=== PATIENT | male | born 1950 | race Caucasian/White ===

== ENCOUNTER → 2019-12-27 14:23 | Outpatient (BNVA) | payer MEDICARE, OTHER, SELFPAY | PROVIDERS: Family Provider Family Medicine; PCP Family Medicine; Referring Provider Nurse Practitioner Family; Visit Provider Internal Medicine Cardiovascular Disease | DX: I49.3 Ventricular premature depolarization (principal); R00.2 Palpitations | CPT/HCPCS: 80048; 83735; 84443 ==

== ENCOUNTER 2020-01-12 15:18 | Outpatient (CLI) | payer MEDICARE, OTHER, SELFPAY ==
--- NOTE | 2020-01-12 15:45 | USCV_ITS ---
Hair Osman Age: 69 Gender: M : 1950 Exam Date: 01/12/2020 15:45 Ordering Phys: Cely Vela MD ([email or web address]) Technologist: Madeleine Macario Exam Location: [facility] [place] Indication: PVCS BP: 173 / 86 HR: 67 Rhythm: PVCs Technical Quality: Good MEASUREMENTS (Male / Female) Normal Values 2D ECHO LV Diastolic Diameter PLAX 5.3 cm 4.2 - 5.9 / 3.9 - 5.3 cm LV Systolic Diameter PLAX 3.6 cm LV Chamber Size 5.1 cm IVS Diastolic Thickness 1.1 cm 0.6 - 1.0 / 0.6 - 0.9 cm IVS Systolic Thickness 1.8 cm LVPW Diastolic Thickness 1.0 cm 0.6 - 1.0 / 0.6 - 0.9 cm LVPW Systolic Thickness 1.3 cm RV Chamber Size 4.0 cm LVOT Diameter 2.0 cm LV Ejection Fraction 2D Teich 59.7 % LV Ejection Fraction MOD 2C 51.5 % LV Ejection Fraction 2C AL 54.4 % LA Diameter 3.9 cm LA Width 2.3 cm LA Height 5.1 cm RA Width 4.1 cm RA Height 4.7 cm Aorta at Sinotubular Diameter 3.2 cm M-MODE LV Diastolic Diameter MM 6.3 cm 4.2 - 5.9 / 3.9 - 5.3 cm LV Systolic Diameter MM 3.6 cm LV Ejection Fraction MM Teich 72.6 % IVS Diastolic Thickness MM 0.8 cm 0.6 - 1.0 / 0.6 - 0.9 cm IVS Systolic Thickness MM 1.7 cm LVPW Diastolic Thickness MM 1.3 cm 0.6 - 1.0 / 0.6 - 0.9 cm LVPW Systolic Thickness MM 1.6 cm RV Diastolic Diameter MM 2.4 cm Aortic Annulus Diameter 3.4 cm LA Ao Ratio MM 1.2 MV E Point Septal Separation 0.8 cm DOPPLER AV Peak Velocity 186.0 cm/s LVOT Peak Velocity 86.0 cm/s AV Area Cont Eq vti 1.9 cm squared AV Area Cont Eq pk 1.5 cm squared MV Area PHT 2.9 cm squared Mitral E to A Ratio 0.7 MV E' Velocity 10.0 cm/s Mitral E to MV E' Ratio 6.1 Mitral E to LV E' Lateral Ratio 5.0 Mitral E to LV E' Septal Ratio 7.7 TV Peak E Velocity 65.0 cm/s PV Peak Velocity 62.0 cm/s FINDINGS Left Ventricle Normal left ventricular size, systolic function and wall thickness, with no regional wall motion abnormalities. Left ventricular ejection fraction is estimated at 60%. Normal diastolic function. Right Ventricle Normal right ventricular size and systolic function. Tricuspid valve regurgitant jet is inadequate for estimation of right ventricular systolic function. Right Atrium Normal right atrial size. Right atrial pressure estimated at 3 mm Hg. Left Atrium Normal left atrial size. Mitral Valve Structurally normal mitral valve. No mitral valve stenosis. Trace mitral valve regurgitation. Aortic Valve Bicuspid aortic valve (Type 0). 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 No aortic valve stenosis. Trace to mild eccentric aortic valve regurgitation. Tricuspid Valve Structurally normal tricuspid valve. No tricuspid valve stenosis. Trace to mild tricuspid valve regurgitation. Pulmonic Valve Structurally normal pulmonic valve. No pulmonary valve stenosis. Trace pulmonary valve regurgitation. Pericardium No pericardial effusion. Normal sized inferior vena cava. Aorta Normal size aortic root and proximal ascending aorta. CONCLUSIONS 1. Normal left ventricular size, systolic function and wall thickness, with no regional wall motion abnormalities. Left ventricular ejection fraction is estimated at 60%. Normal diastolic function. 2. Bicuspid aortic valve (Type 0). No aortic valve stenosis. Trace to mild eccentric aortic valve regurgitation. 3. Trace to mild tricuspid valve regurgitation. 4. Right atrial pressure estimated at 3 mm Hg. 5. No prior similar studies to compare. Cely Vela MD (Electronically Signed) Final Date: 15 January 2020 07:45 S
== END 2020-01-12 15:19 | disposition home or self-care (01) ==
LOC: RAD 15:21
PROVIDERS: Family Provider Family Medicine; PCP Nurse Practitioner Family; Visit Provider Internal Medicine Cardiovascular Disease
DX: I49.3 Ventricular premature depolarization (principal); I08.2 Rheumatic disorders of both aortic and tricuspid valves
CPT/HCPCS: 93306

== ENCOUNTER 2021-12-29 08:55 | Emergency (ER) | payer MEDICARE, OTHER, SELFPAY ==
[2021-12-29 09:17] VITALS: BP 154/88; PULSE 74; RESP 16; TEMP 36.7; O2SAT 96; BMI 26.2
[2021-12-29 09:25] VITALS: BP 154/88; PULSE 74; RESP 16; TEMP 36.7; O2SAT 96
--- NOTE | 2021-12-29 09:27 | XRR_ITS ---
PROCEDURE INFORMATION: Exam: XR Lumbosacral Spine Exam date and time: 12/29/2021 10:03 AM Age: 71 years old Clinical indication: Low back pain; Additional info: Acute low back pain TECHNIQUE: Imaging protocol: Radiologic exam of the lumbosacral spine. Views: 2 or 3 views. COMPARISON: CR Hip 2-3v RIGHT wwo Pelv* [id number] 08/15/2016 1:09 PM FINDINGS: Bones/joints: The lumbar spine maintains a normal lordotic curvature. No spondylolisthesis identified. The vertebral bodies maintain normal height. Multilevel loss of intervertebral disc height throughout the spine with endplate degenerative changes. Lower lumbar facet arthropathy. Concern for neural foraminal narrowing at L4-L5 and L5-S1. Partially visualized right total hip arthroplasty noted. Soft tissues: Unremarkable. XR/XR lumbar spine 2-3V* [id number] IMPRESSION: 1. No vertebral body height loss or traumatic malalignment identified. 2. Multilevel degenerative changes. 3. Concern for neural foraminal narrowing at L4-L5 and L5-S1.
--- NOTE | 2021-12-29 09:27 | W.ED.BACK ---
HPI - Back Pain/Injury General: Chief Complaint: Back Pain/Injury Stated Complaint: back pain Time Seen by Provider: 12/29/21 09:20 Source: patient Mode of arrival: wheelchair Limitations: no limitations History of Present Illness: 71-year-old male presents to the ER today for back pain x3 days. Patient reports he was lifting something on and felt a twinge in his low back. Patient reports since that time he has been unable to get comfortable and has increasing low back pain. Patient reports some radiation down the right leg to the right foot. Patient reports a history of sciatica however it has never been this severe. Patient reports he has been unable to get comfortable at night and sleep. He has tried a bed and lying flat and also tried in a chair sitting up. Patient denies any loss of bowel or bladder control. Reports some numbness associated with the sciatic pain. Patient is taking [id number] medications with no improvement. Review of Systems General: Reports: 10 or more systems reviewed and unremarkable except in HPI and below PFSH ED PFSH: Medical History Bicuspid aortic valve determined by imaging PVC (premature ventricular contraction) Surgical History Status post hip surgery Family History Other Diabetes Myocardial infarction Social History Smoking and tobacco status: former smoker Quit status (tobacco): has quit using tobacco Former quit date comment: 20 YEARS PRIOR Alcohol intake: current Alcohol intake frequency: holidays/special occasions only Physical Exam Const: COMMON NORMALS: average body habitus, patient oriented x3, no limitations, healthy appearing, alert and well nourished; apparent distress (mildly uncomfortable) Neck/C-Spine: COMMON NORMALS: full ROM Resp: COMMON NORMALS: normal respiratory effort EFFORT & INSPECTION: Yes able to speak in complete sentences Cardio: COMMON NORMALS: regular rate and regular rhythm RATE: regular rate RHYTHM: regular rhythm GI: COMMON NORMALS: Normal to inspection, nondistended, normoactive bowel sounds present Back/Pelvis: OTHER: Patient has pain with range of motion of the low back. Patient has right SI joint tenderness. Patient sitting in wheelchair however trying to stand elicits pain. Appears decently comfortable in wheelchair. Extremity: COMMON NORMALS: normal to inspection and full ROM Neuro: COMMON NORMALS: patient oriented x3 SENSORIUM/ORIENTATION: Yes alert Psych: COMMON NORMALS: mental status grossly normal, Normal thought process present and cooperative THOUGHT PROCESS: Normal thought process present Skin: COMMON NORMALS: no rashes or lesions noted GENERAL SKIN EXAM: no rashes or lesions noted Course ED course: 71-year-old male presents to the ER today for acute low back pain that began about 3 days ago after he was lifting something heavy. Patient reports he felt a twinge at the time however the pain has continued to worsen. Patient reports he is unable to get comfortable at night. He has tried sleeping on a flat bed and also tried sitting up in a chair with no improvement. Patient taking [id number] meds with no improvement. He reports some radiating pain down the right leg to the foot. He does have a history of sciatica on that side however this seems much worse. Denies any loss of bowel or bladder control. Denies any other neurological deficits. We will get an x-ray of the L-spine at this time. I suspect a bulging disc. Vital Signs: Vital signs: Vital Signs Temperature 98.0 F 12/29/21 09:25 Pulse Rate 76 12/29/21 10:33 Respiratory Rate 16 12/29/21 10:33 Blood Pressure 146/89 12/29/21 10:33 Pulse Oximetry 96 12/29/21 10:33 MDM - Back Pain/Injury Medical Decision Making 71-year-old male presents to the ER today for acute low back pain that began about 3 days ago after he was lifting something heavy. Patient reports he felt a twinge at the time however the pain has continued to worsen. Patient reports he is unable to get comfortable at night. He has tried sleeping on a flat bed and also tried sitting up in a chair with no improvement. Patient taking [id number] meds with no improvement. He reports some radiating pain down the right leg to the foot. He does have a history of sciatica on that side however this seems much worse. Denies any loss of bowel or bladder control. Denies any other neurological deficits. We will get an x-ray of the L-spine at this time. I suspect a bulging disc. X-ray does not show any acute findings however does indicate probable neuroforaminal narrowing. I discussed findings with patient. I would recommend patient follow-up this week to discuss an MRI with his PCP. We will do a Medrol Dosepak, Robaxin, ketorolac to hopefully help with patient's acute pain. Patient should not take ibuprofen with medications given. Discussed this with patient who verbalized understanding. Return to the ER with new or worsening symptoms. Labs Radiology Impressions Lumbar Spine X-Ray 12/29/21 09:27 IMPRESSION: 1. No vertebral body height loss or traumatic malalignment identified. 2. Multilevel degenerative changes. 3. Concern for neural foraminal narrowing at L4-L5 and L5-S1. Critical Care Time Critical Care Time: Critical Care Time: No Discharge Plan Discharge Patient Disposition: Home Clinical Impression: Acute low back pain with right-sided sciatica Qualifiers: Back pain laterality: right Qualified Code(s): M54.41 - Lumbago with sciatica, right side Condition: Stable Prescriptions: New ketorolac 10 mg tablet 10 mg PO Q8H PRN (Reason: pain) 3 Days 0RF methocarbamol 750 mg tablet 750 mg PO Q8H Qty: 21 0RF Medrol ([place]) 4 mg tablets,dose pack See Rx Instructions .ROUTE .COMPLEX Qty: 21 0RF Rx Instructions: orally per package directions No Action diclofenac sodium 75 mg tablet,delayed release (DR/EC) 75 mg PO BID Qty: 30 1RF Rx Instructions: Dr Mendez patient and needs a new pcp for refills Discharge Orders: Discharge ED (Routine); Ordered 12/29/21 Ordered By: Colleen Layne Referrals: Trinity Capellan, [employer] [Primary Care Provider] - Discharge Diet: Usual diet Discharge Activity: Increase activity as tolerated Patient Instructions: Opioid Safety Activity Restrictions/Additional Instructions: Take ketorolac, Robaxin and Medrol Dosepak as prescribed. Recommend conservative treatment at this time. Recommend ice alternated with heat, stretching, topical muscle rub. Follow-up with PCP in 3 to 5 days if no improvement. Return to the ER with new or worsening symptoms. Coding Level of Care Code ED Product Safety Officer for Ioana [facility]wvee Exam Comprehensive
[2021-12-29 10:33] VITALS: BP 146/89; PULSE 76; RESP 16; O2SAT 96
[2021-12-29 10:48] VITALS: PULSE 75; RESP 16; O2SAT 95
== END 2021-12-29 10:48 | disposition home or self-care (01) ==
PROVIDERS: Emergency Provider Physician Assistant; PCP Nurse Practitioner Family
DX: M54.41 Lumbago with sciatica, right side (principal); Z87.891 Personal history of nicotine dependence
CPT/HCPCS: 72100; 99283